=== PATIENT | male | born 1995 | race Asian ===

== ENCOUNTER 2017-01-24 15:57 | Outpatient (CLI) | payer BC ==
[2017-01-24 17:11] LABS: #Basophils 0.1 thou/uL (0.0-0.2); #Eosinphils 0.1 thou/uL (0.0-0.7); #Lymphocytes 1.4 thou/uL (1.20-3.40); #Neutrophils 11.3 thou/uL (1.40-6.50); %Basophils 0.4 % (0.0-1.0); %Eosinophils 0.5 % (0.0-10.0); %Lymphocytes 9.5 % (21.0-51.0); %Monocytes 13.5 % (0.0-10.0); Hematocrit 47.7 % (42.0-52.0); Mean Platelet Volume 8.6 fL (7.4-10.4); Red Blood Cell (RBC) Count 5.06 mill/uL (4.70-6.10); White Blood Cell (WBC) Count 14.8 thou/uL (4.8-10.8)
== END 2017-01-24 15:58 | disposition home or self-care (01) ==
LOC: LABBT 15:57
PROVIDERS: ATTEND Surgery
DX: Z01.812 Encounter for preprocedural laboratory examination (principal); K61.1 Rectal abscess
CPT/HCPCS: 85025

== ENCOUNTER 2017-01-25 07:12 | Day surgery (SDC) | payer BC ==
[2017-01-24 16:38] VITALS: BMI 21.7
[2017-01-25] MEDS ORDERED: Bupivacaine/Epinephrine 0.5% 10 ML VIAL ONE ×2 (08:25→08:26)
[2017-01-25] MEDS ORDERED: Fentanyl 100 MCG/2 ML VIAL ONE (08:29)
[2017-01-25] MEDS ORDERED: Propofol 200 MG/20 ML VIAL ONE (08:45)
[2017-01-25] MEDS ORDERED: Lidocaine 1% PF 5 ML VIAL ONE (08:45)
[2017-01-25] MEDS ORDERED: Ondansetron HCl/PF 4 MG/2 ML Vial ONE (08:45)
--- NOTE | 2017-01-25 09:54 | OP ---
PREOPERATIVE DIAGNOSIS: Perirectal abscess. SURGEON: Mayur Ritchie M.D. PROCEDURE PERFORMED: Incision and drainage, debridement of perirectal abscess. INDICATIONS: A 21-year-old male with 3-day history of progressive pain and swelling in the perianal region and was found to have perirectal abscess. FINDINGS: About a 3 cm perirectal abscess, left anterior. PROCEDURE IN DETAIL: After informed consent was obtained, the patient was taken to the operating ro om and given general endotracheal anesthesia, placed in lithotomy position. Perianal region was pre pped and draped in usual fashion. An elliptical incision was performed to incise the abscess. Thes e cultures were obtained, it had several pockets which were broken up digitally. Then, the cavity wa s thoroughly irrigated with saline. Hemostasis achieved with electrocautery, packed with Betadine g auze. Sterile bandage applied. The patient tolerated the procedure well and transferred to recover y in good condition. Sponge and needle count verified correct x2.
[2017-01-25] MEDS ORDERED: HYDROcodone/Acetaminophen 5/325 mg Tablet ONE (11:26)
== END 2017-01-25 12:29 | disposition home or self-care (01) ==
LOC: SDC 07:12
PROVIDERS: ATTEND Surgery
PROC: 0D9P0ZX Drainage of Rectum, Open Approach, Diagnostic (ICD-10-PCS; principal; 2017-01-25)
DX: K61.1 Rectal abscess (principal)
CPT/HCPCS: 87070; 87077; 87186; 87205; J0694; J2001; J2405; J2704; J3010; J3490; J7050; Q9968